=== PATIENT | male | born 1950 | race African-American/Black ===

== ENCOUNTER 2017-02-13 19:33 | Emergency (ER) | payer MEDICARE, MEDICAID ==
[~2017-02-13] VITALS: Ht 180.3 cm; Wt 61.0 kg
[~2017-02-13 19:33] MED LIST: AMLO10TA4 PO; ATOR20TA65 PO; HYDR25TA PO
[2017-02-13 20:12] VITALS: BP 137/73
== END 2017-02-13 23:00 | disposition left against medical advice (07) ==
LOC: ER 19:33
DX: H53.122 Transient visual loss, left eye (principal); E11.9 Type 2 diabetes mellitus without complications; I10 Essential (primary) hypertension; Z53.21 Procedure and treatment not carried out due to patient leaving prior to being seen by health care provider
CPT/HCPCS: 82962